=== PATIENT | female | born 1995 | race African-American/Black ===

== ENCOUNTER 2024-01-07 23:07 | Emergency (ER) | payer SELFPAY ==
[~2024-01-07] VITALS: Ht 165.1 cm; Wt 100.0 kg
[2024-01-07 23:29] VITALS: BP 160/110; O2SAT 100
[2024-01-08] MEDS: ACETAMINOPHEN 325MG TABLET PO ONE (00:59)
[2024-01-08 01:31] VITALS: PULSE 89; RESP 18; TEMP 98.2
== END 2024-01-08 01:32 | disposition home or self-care (01) ==
LOC: ER 23:07
DX: R55 Syncope and collapse (principal); E86.0 Dehydration; E11.9 Type 2 diabetes mellitus without complications; I10 Essential (primary) hypertension
CPT/HCPCS: 82962; 93005; 99283